=== PATIENT | male | born 1980 | race Caucasian/White ===

== ENCOUNTER → 2018-01-20 11:08 | Outpatient (CLI) | payer BC, SELFPAY ==
[2018-01-20 12:32] LABS: T4 Free Direct 1.22 ng/dL (0.76-1.46); Thyroid Stim Hormone (TSH) 0.47 uIU/mL (0.358-3.74)
== END ==
PROVIDERS: Family Provider Family Medicine; PCP Family Medicine; Visit Provider Nurse Practitioner
DX: E03.9 Hypothyroidism, unspecified (principal)
CPT/HCPCS: 36415; 84439; 84443

== ENCOUNTER → 2019-04-16 12:09 | Outpatient (CLI) | payer BC, SELFPAY ==
[2019-02-19 16:42] VITALS: BMI 25.1
[2019-04-16 13:48] LABS: T4 Free Direct 0.99 ng/dL (0.76-1.46); Thyroid Stim Hormone (TSH) 1.45 uIU/mL (0.358-3.74)
== END ==
PROVIDERS: Referring Provider Nurse Practitioner; Visit Provider Nurse Practitioner
DX: E03.9 Hypothyroidism, unspecified (principal)
CPT/HCPCS: 36415; 84439; 84443

== ENCOUNTER 2020-04-19 08:09 | Emergency (ER) | payer OTHER, SELFPAY ==
[2019-10-04 07:27] VITALS: BMI 25.1
[2020-04-19 08:11] VITALS: BP 119/72; PULSE 48; RESP 16; TEMP 36.6; O2SAT 100; BMI 24.9
--- NOTE | 2020-04-19 08:23 | ED.VIS.GEN ---
History of Present Illness Chief Complaint: Laceration Informant: Patient Onset: Today Current Severity: Mild Maximum Severity: Mild Narrative: She presents with a laceration on the back of his left hand. He was using a hatchet to cut some wood and cut his hand. He is right-hand dominant. He is unsure of his last tetanus update. - Past Medical History (1) Hypothyroidism (acquired) Status: Chronic Past Medical History - Allergies and Home Meds Allergies/Adverse Reactions: Allergies No Known Allergies Allergy (Verified 04/19/20 08:10) Primary Care Physician: Care Physician,No Primary [Primary Care Provider] - Lives: Spouse/ Significant Other Smoking Status: Former smoker Review of Systems General: Denies: Chills, Fever Eyes: Denies: Visual changes - bilaterally ENT: Denies: Bilateral ear pain Cardiovascular: Denies: Chest pain Respiratory: Denies: Dyspnea, Cough Gastrointestinal: Denies: Abdominal pain Musculoskeletal: Reports: Extremity Pain Skin: Reports: Wounds Neurological: Denies: Weakness, Parasthesia, Numbness Hematologic: Denies: Easy bruising, Easy bleeding Allergy: Denies: Uticaria Physical Exam Vital Signs/Narrative: Vital Signs Temp Pulse Resp BP Pulse Ox 04/19/20 08:11 98 F 48 L 16 119/72 100 Inital Vital Signs reviewed: Yes General: Well nourished, Well developed Head: Normocephalic ENT: Moist mucous membranes Neck: Supple Cardiovascular: Regular rate, Regular rhythm, Bradycardia Respiratory: No distress, CTA bilaterally Abdomen: Soft, Nontender Extremities: - - 1 cm laceration on the back of the left hand between the thumb and index finger. Bleeding is well controlled. Full range of motion of all digits with normal strength and sensation. Normal cap refill distally. Neurological: Alert, Oriented x3, Normal Strength, Normal Sensation Psychological: Normal affect Diagnostic/Tx/Re-eval - Medical Decision Making Tetanus update is provided. 1/2 cc of 1% lidocaine is used locally for anesthesia. Wound is cleansed. 1 single stitch of 5-0 nylon is placed across the wound. Dressing is applied. Patient is to have sutures removed in 5 to 7 days. Procedures - Lacerations No standard instances Length: 0.39 in Depth: Skin Shape: Linear Laceration repair: Lidocaine, Local Number of Sutures/Amberg: 1 Suture Information: Ethilon, Simple, 5-0 ED Disposition - Plan for ED Patient: Disposition: Home or Assisted Living Diagnosis: Hand laceration Instructions: ED Laceration Ext Sutr Stap Tape Additional Instructions: Have stitches removed in 5-7 days.
[2020-04-19] MEDS: Diphth,Pertuss(Acell),Tet Vac 0.5 ML Vial IM (08:36)
== END 2020-04-19 08:45 | disposition home or self-care (01) ==
LOC: ED 09:07
PROVIDERS: Emergency Provider Emergency Medicine
DX: S61.412A Laceration without foreign body of left hand, initial encounter (principal); W27.8XXA Contact with other nonpowered hand tool, initial encounter; Y93.89 Activity, other specified; Y92.9 Unspecified place or not applicable; Y99.9 Unspecified external cause status; Z23 Encounter for immunization; E03.9 Hypothyroidism, unspecified; Z79.899 Other long term (current) drug therapy; Z87.891 Personal history of nicotine dependence
CPT/HCPCS: 12001; 90471; 90715; 99283

== ENCOUNTER → 2020-05-22 16:28 | Outpatient (CLI) | payer OTHER, SELFPAY ==
[2020-05-22 17:23] LABS: T4 Free Direct 1.16 ng/dL (0.76-1.46); Thyroid Stim Hormone (TSH) 0.33 uIU/mL (0.358-3.74)
== END ==
PROVIDERS: Referring Provider Internal Medicine Endocrinology, Diabetes & Metabolism; Visit Provider Internal Medicine Endocrinology, Diabetes & Metabolism
DX: E03.9 Hypothyroidism, unspecified (principal)
CPT/HCPCS: 36415; 84439; 84443

== ENCOUNTER → 2020-06-16 16:26 | Outpatient (CLI) | payer OTHER, SELFPAY ==
[2020-06-16 13:30] VITALS: BMI 24.9
--- NOTE | 2020-06-16 13:30 | MASS_PTH ---
PATIENT: LISSETT MCKINLEY LOC: [facility] U#:[id number] AGE/SX: 45/M ROOM: RE06/16/[address]: Dr. Dre Grimes MD : [id number] BED: DIS: SPEC #: [id number] RECD: 06/16/20 16:18 STATUS: KYLEE PERLA #: [id number] RUTH: 06/16/20 13:[address]: Dre Grimes DEPT: SURGICAL PATHOLOGY RECD BY: Abiel Boateng ENTERED: 06/17/20 09:05 SP TYPE: Mass OTHR DR: No Primary Care Phys Tissues: Neck, NOS Procedures: Surgery Specimen Level III HEADER OPERATION: Excision of posterior neck mass PRE-OP DIAGNOSIS: Subcutaneous mass of neck R22.1 TISSUE SUBMITTED: Posterior neck mass MICROSCOPIC DIAGNOSIS Posterior neck mass, excision: Consistent with fibrolipoma. SJ:maisha 06/18/20 MICROSCOPIC DESCRIPTION Slides are reviewed. GROSS DESCRIPTION Received in fixative is one container labeled with the patient's name and designated posterior neck mass. The specimen consists of a piece of grimes-yellow adipose tissue measuring 2.5 x 2 x 1.5 cm. Also present in the container are two pieces of grimes-yellow adipose tissue measuring in aggregate 1.5 x 1 x 0.3 cm. Sections reveal yellow adipose cut surfaces without area of hemorrhage, necrosis or cystic degeneration. Sectioning of the largest piece reveal grimes-yellow adipose cut surfaces without area of hemorrhage, necrosis or cystic degeneration. The intermediate size piece is bisected. The entire specimen is submitted in three cassettes as follows: 1 - two smaller pieces, 2 & 3 - largest piece. / SJ:rg 06/17/20 TC:1 CPT: 05836
== END ==
PROVIDERS: Referring Provider Surgery; Visit Provider Surgery
DX: R22.1 Localized swelling, mass and lump, neck (principal)
CPT/HCPCS: 88304; 88305

== ENCOUNTER → 2020-07-25 12:52 | Outpatient (CLI) | payer OTHER, SELFPAY ==
[2020-06-16 13:30] VITALS: BMI 24.9
[2020-07-25 14:45] LABS: T4 Free Direct 1.53 ng/dL (0.76-1.46); Thyroid Stim Hormone (TSH) 0.23 uIU/mL (0.358-3.74)
== END ==
PROVIDERS: Referring Provider Internal Medicine Endocrinology, Diabetes & Metabolism; Visit Provider Internal Medicine Endocrinology, Diabetes & Metabolism
DX: E03.8 Other specified hypothyroidism (principal); E06.3 Autoimmune thyroiditis
CPT/HCPCS: 36415; 84439; 84443

== ENCOUNTER → 2020-12-08 15:49 | Outpatient (CLI) | payer OTHER, SELFPAY ==
[2020-06-16 13:30] VITALS: BMI 24.9
[2020-12-08 17:38] LABS: T4 Free Direct 0.93 ng/dL (0.76-1.46); Thyroid Stim Hormone (TSH) 2.96 uIU/mL (0.358-3.74)
== END ==
PROVIDERS: Referring Provider Internal Medicine Endocrinology, Diabetes & Metabolism; Visit Provider Internal Medicine Endocrinology, Diabetes & Metabolism
DX: E03.8 Other specified hypothyroidism (principal); E06.3 Autoimmune thyroiditis
CPT/HCPCS: 36415; 84439; 84443

== ENCOUNTER → 2021-06-16 16:15 | Outpatient (CLI) | payer BC, SELFPAY ==
[2021-06-16 16:48] LABS: Absolute Lymphocyte Count 1.81 X10^3/uL (0.83-4.51); Absolute Neutrophil Count 3.7 X10^3/uL (2.0-7.7); Basophil# 0.03 X10^3/uL; Basophil% 0.5 % (0-1); Eosinophil# 0.17 X10^3/uL; Eosinophils% 2.7 % (0-5); Hematocrit 46.3 % (40-54); Hemoglobin 15.8 g/dL (13.0-16.5); Lymphocyte # 1.81 X10^3/ul (0.83-4.51); Lymphocyte % 28.5 % (19-41); Mean Corp Hgb Conc 34.1 g/dL (32-36); Mean Corpuscular Hgb 30.6 pg (27.0-32.0); Mean Corpuscular Volume 89.6 fL (80-94); Mean Platelet Vol. 8.8 fl (6.2-12.0); Monocyte# 0.64 X10^3/uL; Monocyte% 10.1 % (0-10); NRBC Flagged by Analyzer 0 % (0-5); Neutrophil # 3.66 X10^3/uL (2.7-7.7); Neutrophil % 57.6 % (47-70); Platelet Count 299 K/mm3 (150-450); RBC Distribution Width CV 12.2 % (11.6-14.6); RBC Distribution Width SD 39.7 fl (35.1-43.9); Red Blood Count 5.17 M/mm3 (4.6-6.2); White Blood Count 6.4 K/mm3 (4.4-11.0)
[2021-06-16 17:18] LABS: Vitamin D,25 Hydroxy 40.3 ng/mL
[2021-06-16 17:23] LABS: ALB/GLOB Ratio 1.2 RATIO (0.9-2.4); AST(SGOT) 21 U/L (15-37); Alanine Aminotransfer ALT/SGPT 46 U/L (16-61); Alkaline Phosphatase 79 U/L (45-117); Anion Gap 5 (5-15); BUN 19 mg/dL (7-18); BUN/Creat Ratio 21.6 RATIO (10-20); Calcium,Total 8.9 mg/dL (8.5-10.1); Chloride 107 mmol/L (98-107); Cholesterol 167 mg/dL (200); Creatinine, Serum 0.88 mg/dL (0.70-1.30); EST Glomerular Filtration Rate 102 mL/min (>60); Est Glom Filt Rate - Afr Amer 124 mL/min (>60); Globulin 3.4 g/dL (2.2-4.2); Glucose 87 mg/dL (74-106); High Density Lipoprotein 42 mg/dL; Potassium 3.8 mmol/L (3.5-5.1); Protein, Total 7.4 g/dL (6.4-8.2); Sodium Level 140 mmol/L (136-145); T4 Free Direct 0.94 ng/dL (0.76-1.46); Triglycerides 268 mg/dL; Very Low Density Lipoprotein 54 mg/dL (5-40)
== END ==
PROVIDERS: Referring Provider Internal Medicine Endocrinology, Diabetes & Metabolism; Visit Provider Internal Medicine Endocrinology, Diabetes & Metabolism
DX: E03.8 Other specified hypothyroidism (principal); E06.3 Autoimmune thyroiditis; E55.9 Vitamin D deficiency, unspecified
CPT/HCPCS: 36415; 80053; 80061; 82306; 84439; 84443; 85025

== ENCOUNTER → 2022-06-10 | Outpatient (CLI) | payer BC, SELFPAY ==
[2022-06-10 17:11] LABS: Absolute Lymphocyte Count 1.84 X10^3/uL (0.83-4.51); Absolute Neutrophil Count 3.8 X10^3/uL (2.0-7.7); Basophil# 0.04 X10^3/uL; Basophil% 0.6 % (0-1); Eosinophil# 0.15 X10^3/uL; Eosinophils% 2.3 % (0-5); Hematocrit 45.4 % (40-54); Hemoglobin 16.2 g/dL (13.0-16.5); Lymphocyte # 1.84 X10^3/ul (0.83-4.51); Mean Corp Hgb Conc 35.7 g/dL (32-36); Mean Corpuscular Volume 89.7 fL (80-94); Mean Platelet Vol. 8.8 fl (6.2-12.0); Monocyte% 10.7 % (0-10); NRBC Flagged by Analyzer 0 % (0-5); Neutrophil % 57.9 % (47-70); Platelet Count 282 K/mm3 (150-450); RBC Distribution Width CV 12.4 % (11.6-14.6); RBC Distribution Width SD 40.5 fl (35.1-43.9); Red Blood Count 5.06 M/mm3 (4.6-6.2); White Blood Count 6.6 K/mm3 (4.4-11.0)
[2022-06-10 18:22] LABS: Vitamin B12 797 pg/mL (211-911)
[2022-06-10 18:53] LABS: ALB/GLOB Ratio 1.2 RATIO (0.9-2.4); AST(SGOT) 21 U/L (15-37); Alanine Aminotransfer ALT/SGPT 54 U/L (16-61); Alkaline Phosphatase 82 U/L (45-117); Anion Gap 8 (5-15); BUN 23 mg/dL (7-18); BUN/Creat Ratio 26.9 RATIO (10-20); Calcium,Total 8.7 mg/dL (8.5-10.1); Chloride 108 mmol/L (98-107); Cholesterol 174 mg/dL (200); Creatinine, Serum 0.85 mg/dL (0.70-1.30); EST Glomerular Filtration Rate 105 mL/min (>60); Est Glom Filt Rate - Afr Amer 127 mL/min (>60); Globulin 3.4 g/dL (2.2-4.2); Glucose 87 mg/dL (74-106); High Density Lipoprotein 37 mg/dL; Potassium 3.7 mmol/L (3.5-5.1); Protein, Total 7.4 g/dL (6.4-8.2); Sodium Level 141 mmol/L (136-145); T4 Free Direct 0.95 ng/dL (0.76-1.46); Thyroid Stim Hormone (TSH) 4.48 uIU/mL (0.358-3.74); Triglycerides 190 mg/dL; Very Low Density Lipoprotein 38 mg/dL (5-40)
== END | disposition home or self-care (01) ==
PROVIDERS: Referring Provider Internal Medicine Endocrinology, Diabetes & Metabolism; Visit Provider Internal Medicine Endocrinology, Diabetes & Metabolism
DX: E03.8 Other specified hypothyroidism (principal); E06.3 Autoimmune thyroiditis; R20.2 Paresthesia of skin
CPT/HCPCS: 36415; 80053; 80061; 82607; 84439; 84443; 85025

== ENCOUNTER → 2023-06-09 | Outpatient (CLI) | payer BC, SELFPAY ==
[2023-06-09 17:43] LABS: T4 Free Direct 1.02 ng/dL (0.76-1.46)
== END | disposition home or self-care (01) ==
LOC: LAB 16:29
PROVIDERS: Referring Provider Internal Medicine Endocrinology, Diabetes & Metabolism; Visit Provider Internal Medicine Endocrinology, Diabetes & Metabolism
DX: E03.8 Other specified hypothyroidism (principal); E06.3 Autoimmune thyroiditis
CPT/HCPCS: 36415; 84439; 84443

== ENCOUNTER → 2024-01-31 | Outpatient (CLI) | payer OTHER, SELFPAY ==
[2024-01-31 16:59] LABS: T4 Free Direct 0.86 ng/dL (0.76-1.46); Thyroid Stim Hormone (TSH) 2.46 uIU/mL (0.358-3.74)
== END | disposition home or self-care (01) ==
PROVIDERS: Referring Provider Internal Medicine Endocrinology, Diabetes & Metabolism; Visit Provider Internal Medicine Endocrinology, Diabetes & Metabolism
DX: E03.9 Hypothyroidism, unspecified (principal)
CPT/HCPCS: 36415; 84439; 84443

== ENCOUNTER → 2025-06-06 | Outpatient (CLI) | payer OTHER, SELFPAY | END | disposition home or self-care (01) | LOC: LAB 07:36 | PROVIDERS: Referring Provider Internal Medicine Endocrinology, Diabetes & Metabolism; Visit Provider Internal Medicine Endocrinology, Diabetes & Metabolism | DX: E03.8 Other specified hypothyroidism (principal); E06.3 Autoimmune thyroiditis | CPT/HCPCS: 36415; 84439; 84443 ==

== ENCOUNTER → 2025-07-17 | Outpatient (CLI) | payer OTHER, SELFPAY ==
--- NOTE | 2025-07-17 14:47 | NEURO ---
NCS and/or EMG Patient Report Ordering Doctor: Brent Doe DATE OF SERVICE: 07/17/25 Davin presents with complaints of pain in the right hand. Electrodiagnostic findings: Right median motor nerve demonstrates normal distal latency, amplitude with borderline reduced conduction velocity. Right ulnar motor response is within normal limits, including conduction across the elbow. Normal right median sensory latency at the wrist. Needle EMG testing was performed upper limbs. All muscles tested showed no evidence of denervation with normal motor unit action potentials. Electrodiagnostic impression: This is an abnormal study in the right upper limb 1. Electrodiagnostic findings suggestive of right sided median mononeuropathy. This is consistent with a mild right carpal tunnel syndrome Multi Select Codes Neurology Neurology Interp Codes: 30275-46 Musc test done w/n test comp (interp) and 13273-62 Nrv cndj test 7-8 studies (interp)
== END | disposition home or self-care (01) ==
LOC: PSN 14:01
PROVIDERS: Referring Provider Physician Assistant Surgical; Visit Provider Physician Assistant Surgical
DX: R20.2 Paresthesia of skin (principal); M79.641 Pain in right hand
CPT/HCPCS: 95886; 95910